=== PATIENT | male | born 1960 | race Caucasian/White ===

== ENCOUNTER 2021-07-02 22:20 | Inpatient (IN) | payer OTHER ==
[~2021-07-02] VITALS: Ht 180.3 cm; Wt 90.7 kg
--- NOTE | 2021-07-02 22:24 | NUR ---
PT SUSAN ALS. TAKEN TO BED 9
[2021-07-02 22:30] VITALS: BP 100/59
--- NOTE | 2021-07-02 22:30 | NUR ---
61 Y/O MALE BIBA, C/O FEVER AND POSS SEPSIS X2 WKS. PATIENT PRESENTS TO ED WITH PALE, COOL EXTREMETIES AND HOT CORE, DIAPHORETIC. PT STATES HE HAD RECENT LIVER SURGERY FOR REMOVAL OF CYSTS AND LIVER DRAINAGE X2 WKS AGO; PT HAS BEEN PROGRESSIVELY WEAK. DENIES N/V/D; AAOX4; PT TOO WEAK TO AMBULATE; LUNGS CLEAR BL; HR EVEN AND REGULAR; PT DENIES ANY CP, SOB, OR COUGH AT THIS TIME; PATIENT STATES PAIN OF 9/10 AT THIS TIME; VSS; PATIENT POSITIONED FOR COMFORT; HOB ELEVATED; BEDRAILS UP X2; BED DOWN. ER MD MADE AWARE OF PT STATUS. HX: HTN NKA SEE MED REC LIST
[2021-07-02] MEDS ORDERED: NACL 0.9% 1,000 ML IV SCH (22:35)
[2021-07-02] MEDS ORDERED: cefTRIAXone 1,000 MG in DEXT 5% MINI-BAG PLUS 50 ML IV ONE (22:35)
[2021-07-02 22:52] LABS: BASOPHILS # (AUTO) 0.3 K/uL (0.00-0.22); BASOPHILS % (AUTO) 1.3 % (0.0-2.0); EOSINOPHILS % (AUTO) 0.1 % (0.0-4.0); HEMATOCRIT 30.6 % (36-52); HEMOGLOBIN 9.5 g/dL (12.0-18.0); LYMPHOCYTES # (AUTO) 0.7 K/uL (2.0-11.5); LYMPHOCYTES % (AUTO) 3.2 % (20.5-51.1); MEAN CORPUSCULAR HEMOGLOBIN 25 pg (27-31); MEAN CORPUSCULAR HGB CONC 31 g/dL (33-37); MEAN CORPUSCULAR VOLUME 81.9 fL (80-94); MONOCYTES # (AUTO) 0.7 K/uL (0.8-1.0); MONOCYTES % (AUTO) 3.2 % (1.7-9.3); NEUTROPHILS # (AUTO) 19.1 K/uL (1.8-7.7); NEUTROPHILS % (AUTO) 92.2 % (42.2-75.2); PLATELET COUNT (AUTO) 550 K/uL (140-450); RED BLOOD CELL COUNT(AUTO) 3.73 MIL/uL (4.20-6.10); RED CELL DISTRIBUTION WIDTH 21.5 % (11.6-13.7); WHITE BLOOD COUNT (AUTO) 20.7 K/uL (4.8-10.8)
--- NOTE | 2021-07-02 22:57 | NUR ---
Dr. Ballard examining patient.
[2021-07-02] MEDS ORDERED: cefTRIAXone 1,000 MG VIAL ONE (23:07)
[2021-07-02 23:19] LABS: ALBUMIN 1.6 g/dL (3.4-5.0); ANION GAP 15.8 (8-16); CARBON DIOXIDE 20.8 mmol/L (21-32); CREATININE 1.9 mg/dL (0.6-1.3); POTASSIUM 5.6 mmol/L (3.5-5.1); TOTAL BILIRUBIN 1.5 mg/dL (0.0-1.0)
--- NOTE | 2021-07-03 00:08 | NUR ---
PRIMARY MONTESSORI TEACHER AT BEDSIDE
--- NOTE | 2021-07-03 00:08 | NUR ---
PT RETURN FROM CT
[2021-07-03] MEDS ORDERED: MORPHINE SULFATE 4 MG/ML SYR IVP ONE (00:25)
[2021-07-03] MEDS ORDERED: SYN.05 PO (00:47)
[2021-07-03] MEDS ORDERED: MULT-2540 PO (00:47)
[2021-07-03] MEDS ORDERED: PRED5TAB7 PO (00:47)
[2021-07-03] MEDS ORDERED: OXYC5TAB4 PO (00:47)
[2021-07-03] MEDS ORDERED: LID5T TP (00:47)
[2021-07-03] MEDS ORDERED: TRAM50TA1 PO (00:47)
[2021-07-03] MEDS ORDERED: APIX5TAB PO (00:47)
[2021-07-03] MEDS ORDERED: ESCI10TA PO (00:47)
[2021-07-03] MEDS ORDERED: DEXL60EC PO (00:47)
[2021-07-03] MEDS ORDERED: FEBU40TA PO (00:47)
[2021-07-03] MEDS ORDERED: LYR50 PO (00:47)
[2021-07-03] MEDS ORDERED: TACR1CAP17 PO (00:47)
[2021-07-03] MEDS ORDERED: SODI650T2 PO (00:47)
[2021-07-03] MEDS ORDERED: CEL250 PO (00:47)
[2021-07-03 01:21] LABS: APPEARANCE,URINE SL CLOUDY (CLEAR); BILIRUBIN,URINE 1+ (NEGATIVE); BLOOD, URINE NEGATIVE (NEGATIVE); COLOR,URINE DARK YELLOW (YELLOW); LEUKOCYTE ESTERASE ,URINE NEGATIVE (NEGATIVE); NITRITE, URINE NEGATIVE (NEGATIVE); PH,URINE 5.5 (5.0-9.0); UGLUCOSE TRACE (NEGATIVE)
--- NOTE | 2021-07-03 02:25 | NUR ---
covid/rachna swab collected and walked to lab
--- NOTE | 2021-07-03 03:00 | NUR ---
PT POC PRECIOUS MOODY () [phone]
[2021-07-03] MEDS ORDERED: DEXT 5% /NACL 0.9% 1,000 ML IV ONE (04:00)
[2021-07-03] MEDS ORDERED: MORPHINE SULFATE 4 MG/ML SYR IVP PRN (04:00)
[2021-07-03] MEDS ORDERED: ONDANSETRON 4 MG/2 ML VIAL IVP PRN (04:00)
--- NOTE | 2021-07-03 04:59 | NUR ---
Patient will be admitted to care of DR REDDING. Admited to Med/Surg. Will go to room 111B. Belongings list completed. Report to AVELINO MAHER.
[2021-07-03 05:15] VITALS: BP 100/65
--- NOTE | 2021-07-03 05:15 | NUR ---
Admitted from ER TO MED SURGICAL UNIT WITH, 61 YRS OLD, MALE, COOPERATIVE. with chief complaint of FEVER, ABDOMINAL PAIN. NO SOB NOTED BUT ON ROOM AIR, 02 SAT IS 88-89%. ON 2 LITERS VIA N/C 02 SAT 94%. AWAKE, A/OX4 WITH OCCASIONAL FORGETFULNESS. IV OF D5 0.9% NS INFUSING, RIGHT AC G20 AT 80 ML/HR. ABDOMEN LARGE, WITH SOME DISTENTION. LEFT SIDE OF ABDOMEN WITH ACCORDION DRAINAGE, BILE COLOR FLUID FROM LIVER SURGERY TWO WEEKS AGO. PATIENT HAS KIDNEY TRANSPLANT 2002. HEAD TO TOE ASSESSMENT DONE WITH CHARGE NURSE BRITTNEY, SKIN IS INTACT. NOTED 3+PITTING EDEMA ON BILATERAL FEET. ELEVATED ON PILLOWS. DENIES PAIN 0/10. WAS GIVEN MORPHINE IN ER. oriented to call light, bed,phone,television, bathroom, smoking policy,visiting hours, procedures, ID bracelet on. Belongings list checked.
--- NOTE | 2021-07-03 05:15 | NUR ---
PATIENT PLAN OF CARE DISCUSSED AND REVIEWED WITH FLO BREAUX.
--- NOTE | 2021-07-03 07:23 | NUR ---
RECEIVED REPORT FROM OIL FIELD LABORER NURSE FOR CONTINUITY OF CARE. PT IN BED SLEEPING AT THIS TIME. RESPIRATIONS ARE EVEN AND UNLABORED. PT IS ON 2L 02 VIA NC. NO SIGNS OF DISTRESS NOTED. PT IS ALERT AND ORIENTED X3. ABLE TO VERBALIZE NEEDS TO STAFF. PT IS NPO EXCEPT FOR MEDS AT THIS TIME. AWAITING GI CONSULT. PT IS INCONTINENT OF BOWEL AND BLADDER. ABD IS NONTENDER, NONDISTENDED WITH BOWEL SOUNDS PRESENT. SKIN IS WARM, DRY AND INTACT. PT DOES HOWEVER HAVE ACCORDION DRAIN TO L SIDE ABD, DRAINING. PT HAS IV TO R AC 20G. CALL LIGHT WITHIN REACH. ALL SAFETY MEASURES IN PLACE. WILL CONTINUE TO MONITOR.
[2021-07-03 08:00] VITALS: BP 121/71
--- NOTE | 2021-07-03 08:06 | NUR ---
Patient's Plan of Care was discussed and reviewed with FLO Hughes
[2021-07-03] MEDS ORDERED: traMADol 50 MG TAB PO PRN (09:30)
--- NOTE | 2021-07-03 09:31 | NUR ---
PT HAS HX OF A FIB AND TACHYCARDIA. PER DR REDDING, TRANSFER PT TO TELEMETRY. NEW ORDERS ALSO PLACED FOR PRN PAIN MEDICATION. NOTED AND CARRIED OUT. WILL CONTINUE TO MONITOR.
[2021-07-03] MEDS ORDERED: SODIUM PHOS / POTASSIUM PHOS 1 PKT PDR PO PRN (10:10)
[2021-07-03] MEDS ORDERED: ACETAMINOPHEN 325 MG TAB PO PRN (10:10)
[2021-07-03] MEDS ORDERED: DOCUSATE SODIUM 100 MG GELCAP PO PRN (10:10)
[2021-07-03] MEDS ORDERED: MAG SULF 2000 MG/WATER PREMIX 50 ML IV PRN (10:10)
[2021-07-03] MEDS ORDERED: POTASSIUM CHLORIDE 40 MEQ, LIDOCAINE MPF 1% 25 MG in NACL 0.9% 250 ML IV PRN (10:10)
[2021-07-03] MEDS: TACROLIMUS 0.5 MG CAP PO SCH ×2 (10:40→20:36)
[2021-07-03] MEDS: MYCOPHENOLATE 250 MG CAP PO SCH ×2 (10:41→20:36)
[2021-07-03] MEDS: predniSONE 5 MG TAB PO SCH (10:41)
--- NOTE | 2021-07-03 10:42 | NUR ---
ADMINISTERED SCHEDULED MEDICATIONS. EDUCATED PT ON MEDS ADMINISTERED. WILL CONTINUE TO MONITOR.
[2021-07-03 11:41] LABS: HEMATOCRIT 30.2 % (36-52); HEMOGLOBIN 9.1 g/dL (12.0-18.0); LYMPHOCYTES # (AUTO) 0.7 K/uL (2.0-11.5); MEAN CORPUSCULAR HEMOGLOBIN 25 pg (27-31); MEAN CORPUSCULAR HGB CONC 30 g/dL (33-37); MEAN CORPUSCULAR VOLUME 83.8 fL (80-94); MONOCYTES % (AUTO) 4.1 % (1.7-9.3); NEUTROPHILS # (AUTO) 22.6 K/uL (1.8-7.7); NEUTROPHILS % (AUTO) 92.9 % (42.2-75.2); PLATELET COUNT (AUTO) 509 K/uL (140-450); RED CELL DISTRIBUTION WIDTH 21.8 % (11.6-13.7); WHITE BLOOD COUNT (AUTO) 24.4 K/uL (4.8-10.8)
[2021-07-03 12:04] LABS: ALBUMIN 1.4 g/dL (3.4-5.0); CARBON DIOXIDE 20.1 mmol/L (21-32); CREATININE 2.3 mg/dL (0.6-1.3); MAGNESIUM 1.9 mg/dL (1.8-2.4); PHOSPHORUS 6.5 mg/dL (2.5-4.9); TOTAL BILIRUBIN 1.2 mg/dL (0.0-1.0)
[2021-07-03 12:09] LABS: POTASSIUM 6.1 mmol/L (3.5-5.1)
--- NOTE | 2021-07-03 12:22 | NUR ---
DC PLANNING: THE PATIENT PRESENTED WITH C/O ABDOMINAL PAIN, 11/08. H/O PERCUTANEOUS LIVER DRAIN, CHOLECYSTECTOMY AND RENAL TRANSPLANT 10 YEARS AGO. WBC'S 20.7, NA+ 127, K+ 5.6, CR 1.9. CXR SHOWS BIBASILAR ATELECTASIS, CT ABDOMEN SHOWS POLYCYSTIC KIDNEY CHANGES. GIVEN ROCEPHIN, NS BOLUS OF 1 L AND MORPHINE. CM SPOKE WITH THE PATIENT AT BEDSIDE WHO STATED THAT HE WASN'T FEELING WELL AND ASKED THAT CM SPEAK WITH HIS . CM SPOKE WITH HIS BY PHONE AND CONFIRMED HIS ADDRESS AND PHONE NUMBER. THE PATIENT LIVES IN A 4 LEVEL HOUSE WITH HIS AND HAS HIS BEDROOM ON THE FIRST FLOOR. HE HAS BEEN IN THE HOSPITAL SEVERAL TIMES THIS YEAR FOR LIVER CYSTS AND INFECTION AT [facility] IN [facility]. HE HAD A PERCUTANEOUS DRAIN PLACED 2 WEEKS AGO AND IS FOLLOWED BY DR GRUBBS FOR HIS LIVER ISSUES. HE SEES HIS PCP BRADY RICHTER MONTHLY. THE PATIENT HAS DME OF [facility] AND IS ON SERVICE WITH [facility] AND HAS BEEN FOLLOWED BY THEM FOR ABOUT 2 WEEKS. THEY ARE PROVIDING P.T., O.T. AND NURSING VISITS.HE REQUIRES A LOT OF ASSISTANCE WITH GETTING OUT OF BED AND AMBULATES TO THE LIVING ROOM WITH ASSISTANCE. 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 HE IS TOTAL CARE WITH ADL'S BUT IS ABLE TO FEED HIMSELF. HIS NOTES THAT THE PATIENT HAS NOT BEEN ABLE TO EAT FULL MEALS AND CAN TOLERATE A FEW BITES OF FOOD. HIS IS ASKING ABOUT [facility] BASED ON HIS SONS RECOMMENDATION, CM EXPLAINED THAT [facility] IS AN ACUTE REHAB AND NOT A SNF BUT THAT CM WILL REFER THE PATIENT PER HER REQUEST. THE PATIENTS SON WILL GIVE SNF OPTIONS WELL AND CM WILL SPEAK WITH THE PATIENTS INSURANCE TO VERIFY THAT THEY'RE CONTRACTED. 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 DC PLAN AT THIS TIME IS FOR PLACEMENT AT SNF OR [facility]. CM WILL FOLLOW. Addendum: 07/03/21 at 1407 by Lizy Lantigau CM DC PLANNING: THE PATIENTS CALLED CM, SNF PREFERENCES ARE [facility]. CM WILL FOLLOW. Addendum: 07/04/21 at 1058 by Lizy Lantigua CM DC PLANNING: YARELI RECEIVED AN ORDER FOR PATIENT TRANSFER TO [facility][1]. YARELI SPOKE WITH THE PATIENTS PRECIOUS TO LET HER KNOW, ALSO ASKED FOR THE PHONE NUMBER FOR DR GRUBBS, THE MD HE SEES FOR HIS LIVER ISSUES. DR SCHULTZ OFFICE NUMBER IS [phone], YARELI LEFT A MESSAGE WITH HIS ANSWERING SERVICE REQUESTING A CALL REGARDING ACCEPTING PATIENT AT [facility] IN [place] THAT IS WHERE THE PATIENT HAS HAD MOST OF HIS SURGERIES. YARELI ALSO SPOKE WITH LOCO AT [facility] ([phone] OPT 4) ASKING TO SPEAK WITH THE ASSIGNED CM. LOCO STATES THAT THE CM IS [facility], PHONE NUMBER NOT AVAILABLE. HE STATES THAT THE [facility] WILL CALL ONCE CLINICALS ARE FAXED, YARELI FAXED CLINICAL PACKET TO [facility] AT [phone], WILL WAIT FOR CALL BACK TO DISCUSS AUTH FOR TRANSFER AND TRANSPORT. YARELI WILL FOLLOW. Addendum: 07/04/21 at 1346 by Lizy Lantigua CM DC PLANNING: YARELI RECEIVED A CALL FROM YARELI HANCOCK AT [facility] ([phone]) TO DISCUSS TRANSFER TO [facility][1]. PER SANTI [facility] IS CONTRACTED BUT THEY WILL NEED TO SUBMIT AN INPATIENT REQUEST SOMETHING THEY KNOW HOW TO DO PER SANTI. YARELI THEN SPOKE WITH DR GRUBBS'S FELLOW DR MAGGY BEAN, IF PATIENT GOES TO [facility] WILL ACCEPT AND DR GRUBBS AND GENEVA WILL FOLLOW. YARELI THEN SPOKE WITH JESSICA AT [facility] ([phone]), GAVE SOME CLINICAL DETAILS AND FAXED THE CLINICAL PACKET TO THEM AT [phone]. YARELI ALSO UPDATED THE PATIENTS . YARELI WILL FOLLOW. Addendum: 07/04/21 at 1502 by Lizy Lantigua CM DC PLANNING: YARELI SPOKE WITH BOOKER AT THE [facility], STATES CASE IS STILL UNDER REVIEW AND THAT THEY ARE SPEAKING WITH DR BEAN REGARDING THE PLAN FOR THE PATIENT. YARELI WILL FOLLOW. Addendum: 07/04/21 at 1739 by Lizy Lantigua CM DC PLANNING: THE PROVIDER CUSTOMER SERVICE NUMBER FOR [facility] TO CALL FOR AUTHORIZATION 7 DAYS A WEEK PER SANTI DOWNS IS [phone]. [facility] WAS GIVEN THE NUMBER FOR THE HOSPITAL AND ACETALDEHYDE CONVERTER OPERATOR FOR FOLLOW UP. AUTHORIZATIONS GIVEN BY [facility] FOR PATIENT ADMISSION TO [facility] OF [phone]. NO AUTHORIZATION IS NEEDED FOR [facility] WHICH WAS CONFIRMED WITH THEM. YARELI GAVE THE AUTH NUMBER TO THE [facility] AND ASKED THEM TO CALL THE ACETALDEHYDE CONVERTER OPERATOR TO FINALIZE ARRANGEMENTS. YARELI ALSO SPOKE WITH THE PATIENTS PRECIOUS TO UPDATE HER ON TRANSFER ARRANGEMENTS. BEST NUMBER TO REACH HER IS [phone]. YARELI ALSO ENDORSED ABOVE TO THE ACETALDEHYDE CONVERTER OPERATOR FOR FOLLOW UP. YARELI WILL FOLLOW.
[2021-07-03] MEDS ORDERED: INSULIN REGULAR, HUMAN 100 UNIT/ML VIAL IVP SCH (12:30)
[2021-07-03] MEDS ORDERED: DEXTROSE 50% 50 ML SYR IVP SCH (12:30)
[2021-07-03] MEDS ORDERED: SODIUM POLYSTYRENE 15 GM/60 ML UDBTL PO SCH (13:00)
[2021-07-03] MEDS: metroNIDAZOLE 500 MG/NS PREMIX 100 ML IV SCH ×2 (13:05→20:35)
--- NOTE | 2021-07-03 13:10 | NUR ---
RN ADMINISTERED IV MEDICATIONS. WILL CONTINUE TO MONITOR.
--- NOTE | 2021-07-03 13:24 | NUR ---
PATIENT HAS BEEN SCREENED AND CATEGORIZED HIGH NUTRITION RISK. PATIENT WILL BE SEEN WITHIN 1-2 DAYS OF ADMISSION. REFERRAL FOR UNINTENTIONAL WEIGHT LOSS AND DECREASED APPETITE CRISTOFER [address]TERO [address]
--- NOTE | 2021-07-03 14:31 | NUR ---
DC PLANNING PATIENT IS A 61 YR OLD MALE WHO PRESENTED TO [facility]/ED ON 07/03/21 FOR ABDOMINAL PAIN. SW MET WITH PATIENT AT BEDSIDE FOR THE PURPOSE OF DISCUSSING AND GATHERING COLLATERAL INFORMATION. PATIENT STRUGGLED TO STAY AWAKE AND PROVIDED SW WITH PERMISSION TO CALL . SW OUTREACHED TO PRECIOUS MOODY (SPOUSE) [phone] WHO REPORTED SHE IS EMERGENCY CONTACT AND MEDICAL DECISION MAKER. MRS. MOODY REPORTS CURRENTLY HAVING AN A.D IN PLACE. MRS. MOODY REPORTS THAT SHE AND MR. MOODY LIVE TOGETHER IN A FOUR LEVEL HOME WITH PATIENT STAYING PRIMARILY ON THE FIRST FLOOR. PATIENT REPORTS THAT PATIENT IS AMBULATORY WITH ASSISTANCE AND UTILIZES A FWW, HAS A BUILT IN SEAT IN SHOWER AND REQUIRES ASSISTANCE WITH ADLS. MS. MOODY REPORTS THAT PATIENT MEETS CONSISTENTLY (1XMONTHLY) W/ PCP DR. BRADY GUERRERO [phone]. LAST VISIT WITH PCP 06/30/21. MRS. MOODY DENIED ANY BARRIERS IN ACQUIRING MEDICATION AND REPORTS RECEIVING MEDICATION FROM [facility] IN THE [facility]. MRS. MOODY DENIED DIALYSIS AND REPORTED THAT PATIENT RECEIVED A KIDNEY TRANSPLANT 10 YRS PRIOR ( DONOR). MRS. MOODY REPORTS PATIENT RECEIVES HOME HEALTH SERVICES FROM [facility] [phone] AND RECEIVES PT, OT, AND NURSE VISITS 2X/WEEKLY. MRS. MOODY INQUIRED ON SNF OR ACUTE CARE REHAB ([facility]). SW NOTIFIED THAT CM WOULD BE NOTIFIED OF REQUEST AND WOULD PROVIDE ADDITIONAL INFORMATION ON PLACEMENTS. REPORTS ADEQUATE FRIEND AND FAMILY SUPPORT AND REPORTS THAT SON IS ACTIVELY INVOLVED IN ASSISTING WITH CARE. SW INQUIRED ON ADDITIONAL RESOURCES NEEDED, PATIENT DECLINED AT THIS TIME.
[2021-07-03 16:00] VITALS: BP 102/59
--- NOTE | 2021-07-03 16:40 | NUR ---
DID ROUNDS ON PT. FAMILY AT BEDSIDE. GAVE FAMILY UPDATE. WILL CONTINUE TO MONITOR.
[2021-07-03] MEDS: PREGABALIN 50 MG CAP PO SCH (17:43)
[2021-07-03] MEDS ORDERED: VANCOMYCIN PER PHARMACY MC PRN (18:55)
--- NOTE | 2021-07-03 19:22 | NUR ---
ENDORSED PT TO SUPERVISOR BOTTLE MACHINES NURSE FOR CONTINUITY OF CARE. PT IS STABLE.
--- NOTE | 2021-07-03 19:23 | NUR ---
RECEIVED BEDSIDE REPORT FROM DAY RN. PT OBSERVED RESTING IN BED WITH EYES CLOSED APPEARS TO BE ASLEEP. RESPIRATIONS ARE EQUAL AND UNLABORED ON 2L NC. PT APPEARS JAUNDICE. PER REPORT PT HAS DRAIN L MID ABD WHICH IS DRAINING LIVER CYST DRAINAGE APPEARS DARK RED. DAY NURSE HAD 360CC OUT DURING SHIFT. MD AWARE. PT APPEARS JAUNDICE. PT NPO. INCONTINENT OF B/B SECOND TO LETHARGIC. IV ON RAC 20G IVF INFUSING PER ORDERS. SKIN IS INTACT. SAFETY MEASURES ARE IN PLACE. CALL LIGHT IS WITHIN REACH.
[2021-07-03] MEDS ORDERED: MEROPENEM 1,000 MG VIAL IV ONE (19:34)
[2021-07-03 20:00] VITALS: BP 92/60
[2021-07-03] MEDS ORDERED: MEROPENEM 1,000 MG in NACL 0.9% 50 ML IV ONE (20:00)
--- NOTE | 2021-07-03 20:35 | NUR ---
VSS. [place] MEDICATIONS GIVEN PER ORDERS. MED EDUCATION GIVEN. PT IS VERY LETHARGIC. SPEECH IS SOFT, SLOW. PT IS AAOX3. ABD IS LARGE, DISTENDED PER PT PASSING GAS. PERCUTANEOUS DRAIN ON L MID ABD DRESSING IS C/D/I. DRAIN IS DRAINING LIVER CYST BY GRAVITY DRAINAGE IS DARK RED/BROWN. PER PT DRAINING HAS DECREASED. POC REVIEWED WITH PT. CALL LIGHT IS WITHIN REACH. WILL CONTINUE TO MONITOR.
[2021-07-03] MEDS: SODIUM BICARBONATE 650 MG TAB PO SCH (20:36)
[2021-07-03] MEDS: APIXABAN 2.5 MG TAB PO SCH (20:45)
[2021-07-03] MEDS ORDERED: cefTRIAXone 2,000 MG in DEXTROSE 5% 100 ML IV SCH (21:00)
[2021-07-03] MEDS ORDERED: VANCOMYCIN 1GM/DEXT 5% PREMIX 200 ML IV ONE (21:00)
[2021-07-03] MEDS ORDERED: VANCOMYCIN 1,000 MG VIAL ONE (21:53)
--- NOTE | 2021-07-03 22:00 | NUR ---
PT OBSERVED LAYING IN BED RESTING QUIETLY WITH EYES CLOSED APPEARS TO BE ASLEEP. CHEST RISE AND FALL NOTED. ALL NEEDS MET. CALL LIGHT IS WITHIN REACH.
[2021-07-04] VITALS: BP 96/53
[2021-07-04 00:10] LABS: CARBON DIOXIDE 19.9 mmol/L (21-32); CREATININE 2.5 mg/dL (0.6-1.3); POTASSIUM 5.9 mmol/L (3.5-5.1)
--- NOTE | 2021-07-04 00:10 | NUR ---
VITAL SIGNS ARE WITHIN NORMAL LIMITS. PATIENT WAS CLEANED AND REPOSITION FOR COMFORT. ALL NEEDS MET. CALL LIGHT IS WITHIN REACH. WILL CONTINUE TO MONITOR.
[2021-07-04] MEDS: DEXT 5% /NACL 0.9% 1,000 ML IV SCH ×3 (00:44→19:48)
--- NOTE | 2021-07-04 02:08 | NUR ---
ROUNDS MADE. PT OBSERVED RESTING IN BED WITH EYES CLOSED. CHEST RISE AND FALL NOTED. WILL CONTINUE TO MONITOR.
[2021-07-04 04:00] VITALS: BP 98/62
[2021-07-04] MEDS ORDERED: MEROPENEM 500 MG VIAL IV ONE (04:00)
[2021-07-04] MEDS: MEROPENEM 500 MG in NACL 0.9% 50 ML IV SCH ×3 (04:02→20:46)
--- NOTE | 2021-07-04 04:10 | NUR ---
VITAL SIGNS ARE WITHIN NORMAL LIMITS. ALL SAFETY MEASURES ARE IN PLACE. WILL CONTINUE TO MONITOR .
[2021-07-04] MEDS: metroNIDAZOLE 500 MG/NS PREMIX 100 ML IV SCH ×3 (05:36→21:19)
[2021-07-04] MEDS: LEVOTHYROXINE 0.05 MG TAB PO SCH (05:36)
[2021-07-04 06:46] LABS: BASOPHILS % (AUTO) 0.1 % (0.0-2.0); HEMATOCRIT 26.7 % (36-52); HEMOGLOBIN 8.2 g/dL (12.0-18.0); LYMPHOCYTES # (AUTO) 0.9 K/uL (2.0-11.5); LYMPHOCYTES % (AUTO) 3.4 % (20.5-51.1); MEAN CORPUSCULAR HEMOGLOBIN 25 pg (27-31); MEAN CORPUSCULAR HGB CONC 31 g/dL (33-37); MEAN CORPUSCULAR VOLUME 83.3 fL (80-94); MONOCYTES # (AUTO) 1.1 K/uL (0.8-1.0); MONOCYTES % (AUTO) 4.2 % (1.7-9.3); NEUTROPHILS # (AUTO) 23.6 K/uL (1.8-7.7); NEUTROPHILS % (AUTO) 92.3 % (42.2-75.2); PLATELET COUNT (AUTO) 503 K/uL (140-450); RED CELL DISTRIBUTION WIDTH 21.3 % (11.6-13.7)
[2021-07-04 06:49] LABS: WHITE BLOOD COUNT (AUTO) 25.6 K/uL (4.8-10.8)
[2021-07-04 06:54] LABS: ANION GAP 16.2 (8-16); CARBON DIOXIDE 18.5 mmol/L (21-32); CREATININE 2.5 mg/dL (0.6-1.3); POTASSIUM 5.7 mmol/L (3.5-5.1)
--- NOTE | 2021-07-04 07:34 | NUR ---
GAVE BEDSIDE REPORT TO DAY RN. PT ENDORSED IN STABLE CONDITION.
--- NOTE | 2021-07-04 07:35 | NUR ---
RECEIVED BEDSIDE REPORT FROM [facility] SHIFT NURSE, FOR CONTINUOUS OF CARE, PT RESTING, NO DISTRESS NOTED, AWAKE ALERT ABLE TO LET NEEDS KNOWN. ON 2LPM O2 VIA NC, NO SOB NOTED. IV TO R AC 20G PATENT INTACT, INFUSING WELL. PT HAS LEFT PERCUTANEOUS DRAIN, DRAINING DARK SEROSANGUINEOUS FLUID TO GRAVITY. INITIAL ASSESSMENT DONE, ALL SAFETY PRECAUTION MET, CALL LIGHT WITHIN REACH, WILL CONTINUE TO MONITOR.
[2021-07-04 08:00] VITALS: BP 95/57
[2021-07-04 08:08] LABS: AFP (TUMOR MARKER) 1.8 ng/mL (0.0-8.4)
[2021-07-04] MEDS ORDERED: FEBUXOSTAT 40 MG PO SCH (09:00)
[2021-07-04] MEDS: PANTOPRAZOLE 40 MG INJ VIAL IVP SCH (09:10)
[2021-07-04] MEDS: APIXABAN 2.5 MG TAB PO SCH ×2 (09:11→20:52)
[2021-07-04] MEDS: MYCOPHENOLATE 250 MG CAP PO SCH (09:12)
[2021-07-04] MEDS: predniSONE 5 MG TAB PO SCH (09:12)
[2021-07-04] MEDS: TACROLIMUS 0.5 MG CAP PO SCH ×2 (09:12→20:51)
--- NOTE | 2021-07-04 09:12 | NUR ---
DUE MEDICATIONS ADMINISTERED, PT TOLERATED WELL, NO DISTRESS NOTED, WILL CONTINUE TO MONITOR.
[2021-07-04] MEDS: ESCITALOPRAM 20 MG TAB PO SCH (09:13)
[2021-07-04] MEDS: MULTIVITAMIN/MINERALS 1 TAB PO SCH (09:13)
[2021-07-04] MEDS: SODIUM BICARBONATE 650 MG TAB PO SCH ×2 (09:14→20:50)
[2021-07-04] MEDS: LIDOCAINE 5% 1 EA PATCH TP SCH (09:19)
[2021-07-04] MEDS ORDERED: SODIUM POLYSTYRENE 15 GM/60 ML UDBTL PO ONE (09:35)
[2021-07-04] MEDS ORDERED: SODIUM POLYSTYRENE 15 GM/60 ML UDBTL PO SCH (10:02)
[2021-07-04] MEDS: HYDROmorphone 1 MG/ML AMP IVP PRN ×2 (10:49→18:19)
--- NOTE | 2021-07-04 10:49 | NUR ---
PT C/O PAIN TO THE ABD 12/08, PT REFUSED TRAMADOL ORDERED PER , SPOKE TO DR REDDING, PER DR NY TO ORDER DILAUDID 1MG PRN Q6H, WILL CONTINUE WITH ORDERS. MEDICATION ADMINISTERED PT TOLERATED WELL. WILL CONTINUE TO MONITOR.
[2021-07-04 12:00] VITALS: BP 95/55
--- NOTE | 2021-07-04 13:06 | NUR ---
07/04/21 RD INITIAL ASSESSMENT COMPLETED PLEASE REFER TO NUTRITION ASSESSMENT UNDER CARE ACTIVITY FOR ESTIMATED NUTRITIONAL NEEDS. 1. CONTINUE CLEAR LIQUID DIET TOLERATED 2. RECOMMEND ENSURE CLEAR TID FOR NUTRITION SUPPORT 3. WHEN/IF MEDICALLY APPROPRIATE, RECOMMEND RENAL DIET WITH TEXTURE MODIFICATION 4. MONITOR PO INTAKE 5. RD TO FOLLOW-UP 2-3 DAYS, HIGH RISK CRISTOFER MONTERO RD
[2021-07-04] MEDS: MIDODRINE 5 MG TAB PO SCH ×2 (13:28→18:18)
[2021-07-04 13:32] LABS: CARBON DIOXIDE 19.6 mmol/L (21-32); CREATININE 2.5 mg/dL (0.6-1.3); POTASSIUM 5.6 mmol/L (3.5-5.1)
[2021-07-04 13:37] LABS: ALBUMIN 1.2 g/dL (3.4-5.0); BILIRUBIN,DIRECT 0.7 mg/dL (0.0-0.3); TOTAL BILIRUBIN 0.8 mg/dL (0.0-1.0)
[2021-07-04] MEDS ORDERED: INSULIN REGULAR, HUMAN 100 UNIT/ML VIAL IVP SCH (13:40)
[2021-07-04] MEDS ORDERED: DEXTROSE 50% 50 ML SYR IVP SCH (13:40)
--- NOTE | 2021-07-04 13:41 | NUR ---
SPOKE TO DR REDDING REGARDING POTASSIUM DID NOT GO DOWN STILL 5.6, PER DR TO ORDER INSULIN 8 UNITS REGULAR IVP WITH DEXTROSE 5O% WILL CONTINUE WITH ORDERS.
--- NOTE | 2021-07-04 15:14 | NUR ---
INFORMED FAMILY ON BEDSIDE REGARDING MEDICATION URACIL THAT WE DONT HAVE IN THE HOSPITAL, TO BRING MEDICATION, STATED UNDERSTANDING, SHE WILL GO HOME AND SEND US THE MEDICATION. Addendum: 07/04/21 at 1546 by Estela Bazan RN MEDICATION NAME SEVERINO
--- NOTE | 2021-07-04 15:15 | NUR ---
RECEIVED CALL FROM PT FAMILY PCP DR. PUCKETT REGARDING PT BILE CULTURE CAME BACK POSITIVE WITH PSEUDOMONAS THAT IS ONLY SENSITIVE TO AMAKACIN, CIPRO, TOBRAMYCIN, MEROPENEM, GENAMYCIN, IMIPENEM. WILL ENDORSE TO
--- NOTE | 2021-07-04 15:44 | NUR ---
WAS NOTIFIED BY FAMILY THAT THEY CAN NOT FIND THE MEDICATION URACIL, DR XIONG WILL CONTINUE TO MONITOR. Addendum: 07/04/21 at 1546 by Estela Bazan RN MEDICATION NAME SEVERINO
[2021-07-04 16:00] VITALS: BP 91/46
--- NOTE | 2021-07-04 16:00 | NUR ---
RECEIVED PATIENT FROM AVELINO TURNER. PATIENT LAYING IN BED AWAKE ALERT AND ORIENTED X4. PATIENT LUNGS CLEAR AND BOWEL SOUNDS ACTIVE. ABDOMEN DISTENDED AND HARD TO TOUCH, PATIENT REPORTS PAIN DURING PALPATION. PATIENT HAS GENERALIZED WEAKNESS AND IS UNABLE TO AMBULATE. PATIENT IS ON 3L O2 NC CONTINUOUS. PATIENT HAS A PERCUTANEOUS DRAIN IN ABDOMEN. DRAINAGE 325 PER LAST NURSE REPORT. PATIENT IS PALE AND WARM TO TOUCH. CALL LIGHT WITHIN REACH, BED AT LOWEST POSITION AND LOCKED, SKIN WARM DRY AND INTACT. PATIENT IS INCONTINENT BLADDER AND BOWEL.
--- NOTE | 2021-07-04 16:32 | NUR ---
ENDORSED PT TO AVELINO CORREA FOR CONTINUOUS OF CARE.
--- NOTE | 2021-07-04 17:30 | NUR ---
INSERTED GONZALES CATHETER AND COLLECTED URINE SAMPLE, SAMPLE SENT TO LAB. FOR STAT ORDER
[2021-07-04] MEDS: PREGABALIN 50 MG CAP PO SCH (18:18)
--- NOTE | 2021-07-04 19:50 | NUR ---
RECEIVEDREPORT AT BEDSIDE.PT IS STABLE.RESP UNLABORED.F/C PATENT AND DRAINING YELLOW COLOR URINE.HAD LT SIDE OF ABDOMEN DRAIN THAT IS PATENT.TELE IS ON AND SHOWING ST.IVF OF D5%,NS INFUSING WELL.CALL LIGHT IN REACH.EILL CONT.MONITORING.
[2021-07-04 20:00] VITALS: BP 108/63
[2021-07-04] MEDS: HYDROCORTISONE NA SUCC 100 MG/2 ML VIAL IV SCH (20:47)
[2021-07-04] MEDS ORDERED: SODIUM ZIRCONIUM CYCLOSILICATE 10 GM POWD.PACK PO ONE (21:00)
[2021-07-04] MEDS: HYDROcodone/APAP 5/325 MG 1 TAB TAB PO PRN (21:34)
[2021-07-05] VITALS: BP 118/63
[2021-07-05] MEDS: HYDROmorphone 1 MG/ML AMP IVP PRN ×4 (00:24→18:42)
--- NOTE | 2021-07-05 00:30 | NUR ---
HAD C/O PAIN NORCO PO GIVEN STILL HAD PAIN ULTRAM PO GIVEN .CALLED FOR DILAUDID BECAUSE HAD STILL SEVERE PAIN .MEDICATED W/ DILAUDID IVP. WILL REASSESS PAIN.HR IS ST.VS STABLE.WILL CONT. MONITORING.
--- NOTE | 2021-07-05 03:09 | NUR ---
Called [facility] Y[facility]I [facility] [phone] to follow up with the transfer; Elisabeth stated that pt needs hospitalist, told her that Dr Russell and Dr Avery will follow pt according to CM note. She stated that she will review the transfer again and will call back shortly
[2021-07-05 04:00] VITALS: BP 107/72
[2021-07-05] MEDS: HYDROCORTISONE NA SUCC 100 MG/2 ML VIAL IV SCH ×2 (04:27→12:32)
[2021-07-05] MEDS: MEROPENEM 500 MG in NACL 0.9% 50 ML IV SCH ×2 (04:27→12:31)
--- NOTE | 2021-07-05 04:30 | NUR ---
SLEPT WELL.HAD 250 ML OUT PUT FROM ABDOMINAL DRAIN.HR IS SR NOW.NO C/O PAIN NOW.
[2021-07-05] MEDS: SODIUM ZIRCONIUM CYCLOSILICATE 10 GM POWD.PACK PO SCH ×2 (04:42→12:32)
--- NOTE | 2021-07-05 04:49 | NUR ---
Called [facility] [phone] to follow up with the transfer; Elisabeth stated that still waiting for accepting provider or hospitalist. She stated that the accepting provider / hospitalist is not Dr Russell and Dr Avery. Told her, will follow up again in the morning
[2021-07-05] MEDS: metroNIDAZOLE 500 MG/NS PREMIX 100 ML IV SCH (05:02)
[2021-07-05 06:17] LABS: BASOPHILS % (AUTO) 0.1 % (0.0-2.0); HEMATOCRIT 26.2 % (36-52); LYMPHOCYTES # (AUTO) 0.8 K/uL (2.0-11.5); LYMPHOCYTES % (AUTO) 3.2 % (20.5-51.1); MEAN CORPUSCULAR HEMOGLOBIN 26 pg (27-31); MEAN CORPUSCULAR HGB CONC 31 g/dL (33-37); MEAN CORPUSCULAR VOLUME 83.6 fL (80-94); MONOCYTES # (AUTO) 0.6 K/uL (0.8-1.0); MONOCYTES % (AUTO) 2.4 % (1.7-9.3); NEUTROPHILS # (AUTO) 22.7 K/uL (1.8-7.7); PLATELET COUNT (AUTO) 480 K/uL (140-450); RED BLOOD CELL COUNT(AUTO) 3.14 MIL/uL (4.20-6.10); RED CELL DISTRIBUTION WIDTH 21.2 % (11.6-13.7)
[2021-07-05] MEDS: LEVOTHYROXINE 0.05 MG TAB PO SCH (06:25)
[2021-07-05 06:36] LABS: CARBON DIOXIDE 18.4 mmol/L (21-32); CREATININE 2.3 mg/dL (0.6-1.3); POTASSIUM 5.4 mmol/L (3.5-5.1)
[2021-07-05] MEDS: MIDODRINE 5 MG TAB PO SCH ×3 (06:45→18:09)
--- NOTE | 2021-07-05 06:47 | NUR ---
HAD C/O SEVERE PAIN.MEDICATED W/MORPHINE IVP.WILL REASSESS PER PROTOCOL.VS STABLE
[2021-07-05 06:58] LABS: NEUTROPHILS % (AUTO) 94.3 % (42.2-75.2)
--- NOTE | 2021-07-05 07:06 | NUR ---
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
--- NOTE | 2021-07-05 07:20 | NUR ---
PT SLEEPING. EQUAL CHEST RISE AND IN NO DISTRESS. RESTING COMFORTABLY. PT ON 3L NASAL CANNULA.
--- NOTE | 2021-07-05 07:34 | NUR ---
ENDORSED TO AM RN IN STABLE CONDITION.
--- NOTE | 2021-07-05 07:36 | NUR ---
RECEIVED BEDSIDE REPORT FROM QUILL STRIPPER NURSE, FOR CONTINUOUS OF CARE, PT RESTING, NO DISTRESS NOTED, AWAKE ALERT ABLE TO LET NEEDS KNOWN. ON 2LPM O2 VIA NC, NO SOB NOTED. SKIN IS WARM, DRY, AND NON-INTACT. PT HAS LEFT PERCUTANEOUS DRAIN, DRAINING DARK SEROSANGUINEOUS FLUID TO GRAVITY. IV TO R AC 20G PATENT INTACT, INFUSING WELL. DENIES PAIN AT THE MOMENT. PLAN OF CARE DISCUSSED. INITIAL ASSESSMENT DONE, ALL SAFETY PRECAUTION MET, CALL LIGHT WITHIN REACH, WILL CONTINUE TO MONITOR.
[2021-07-05 08:00] VITALS: BP 113/71
[2021-07-05] MEDS: SODIUM BICARBONATE 650 MG TAB PO SCH (08:57)
[2021-07-05] MEDS: ESCITALOPRAM 20 MG TAB PO SCH (08:58)
[2021-07-05] MEDS: MULTIVITAMIN/MINERALS 1 TAB PO SCH (08:58)
[2021-07-05] MEDS: PANTOPRAZOLE 40 MG INJ VIAL IVP SCH (08:59)
[2021-07-05] MEDS: predniSONE 5 MG TAB PO SCH (08:59)
[2021-07-05] MEDS: LIDOCAINE 5% 1 EA PATCH TP SCH (09:02)
[2021-07-05] MEDS ORDERED: MYCOPHENOLATE 250 MG CAP PO SCH (09:15)
[2021-07-05] MEDS: TACROLIMUS 0.5 MG CAP PO SCH (09:23)
[2021-07-05] MEDS: APIXABAN 2.5 MG TAB PO SCH (09:23)
--- NOTE | 2021-07-05 09:50 | NUR ---
ALL SCHEDULED MEDS GIVEN. PT IS STABLE. NO DISTRESS NOTED. WILL CONTINUE TO MONITOR.
[2021-07-05] MEDS ORDERED: VANCOMYCIN 1,000 MG in DEXTROSE 5% 250 ML IV SCH (10:00)
[2021-07-05] MEDS: HYDROcodone/APAP 5/325 MG 1 TAB TAB PO PRN (10:48)
[2021-07-05 12:00] VITALS: BP 111/78
[2021-07-05] MEDS: DEXT 5% /NACL 0.9% 1,000 ML IV SCH (12:32)
--- NOTE | 2021-07-05 12:35 | NUR ---
ALL SCHEDULED MEDS GIVEN. PT IS STABLE. NO DISTRESS NOTED. WILL CONTINUE TO MONITOR.
[2021-07-05] MEDS ORDERED: SODIUM POLYSTYRENE 15 GM/60 ML UDBTL PO ONE (12:40)
[2021-07-05] MEDS ORDERED: FUROSEMIDE 40 MG/4 ML VIAL IVP SCH (12:45)
[2021-07-05] MEDS ORDERED: SODIUM BICARBONATE IV SCH ×3 (13:40→23:55)
[2021-07-05] MEDS ORDERED: NACL 0.9% IV SCH ×3 (13:40→23:55)
[2021-07-05] MEDS ORDERED: DEXT 5% IV SCH ×3 (13:40→23:55)
--- NOTE | 2021-07-05 14:36 | NUR ---
CHECKED ON PATIENT. PT IS STABLE. NO DISTRESS NOTED. WILL CONTINUE TO MONITOR
[2021-07-05 16:00] VITALS: BP 100/69
[2021-07-05] MEDS: PREGABALIN 50 MG CAP PO SCH (18:09)
--- NOTE | 2021-07-05 18:10 | NUR ---
ALL SCHEDULED MEDS GIVEN. PT IS STABLE. NO DISTRESS NOTED. WILL CONTINUE TO MONITOR.
--- NOTE | 2021-07-05 18:25 | NUR ---
CONTACTED [facility] TO SETUP TRANSPORTATION FOR PATIENT. ETA WILL BE AT 2100. PATIENT WILL BE GOING TO [facility] IN ROOM [address] MAGGY BEAN. WILL ENDORSED PATIENT REPORT TO [facility] AT 1900
--- NOTE | 2021-07-05 19:45 | NUR ---
RECIEVED PT AAOX 4 , NID , 02 SAT 98 5 , ON O2 AT 2LPM / NC , IV SITE INTACT AND PATENT , W/ URINE GONZALES CATH DRAINING CLEAR URINE OUTPUT ON URINE BAG , W/ LIVER DRAIN DRAINING BY GRAVITY TO COLLECTING BAG DRAIN IN SMALL AMOUNT BROWNISH DRAINAGE , BP 110/ 72 , ON TELE MONITOR - NO C/O PAIN AT THIS TIME , BLOATED ABDOMEN , PLAN OF CARE DISCUSSED AND VERBALIZES UNDERSTANDING , WILL ATTEND ALL NEEDS , FOR TRANSFER TO [facility] PER 'S ORDER , TRANSFER PACKET ALREADY PRINTED . WILL CONT. TO MONITOR .
--- NOTE | 2021-07-05 19:45 | NUR ---
ENDORSED TO REVIEW SPECIALIST NURSE FOR CONTINUITY OF CARE. PT IS STABLE.
--- NOTE | 2021-07-05 20:53 | NUR ---
REPORT GIVEN TO LIDIA YOU AND HE KNOWS PT IS TO BE [facility] HERE BY 2100 BY TRANSPORT .
[2021-07-05] MEDS ORDERED: SODIUM CHLORIDE 1 GM TAB PO SCH (21:00)
--- NOTE | 2021-07-05 21:04 | NUR ---
CALL [facility] - PER [facility] THEY WILL HERE AT ABOUT 45 MINS.
--- NOTE | 2021-07-05 21:59 | NUR ---
DISCHARGE / OTOLARYNGOLOGY SURGEON BY [facility] , DISCONNECTED IVF , DRAIN URINE BAG W ITH 300CC U.O , DRAIN LIVER DRAIN W/ 100CC DRAINAGE , BP 112/ 74 , O2 SAT 98 % , SC 98 , T 98.8 F , NO C/O PAIN . PER COMMAND TO NIKA BREAUX LVN - ALL BELONGINGS GIVEN BY NIKA BREAUX LVN TO [facility] STAFF . SKIN INTACT . REMOVE ON TELE MONITOR .
[2021-07-06 02:20] LABS: BARBITURATE, URINE NEGATIVE ng/ml (NEG <=200); BENZODIAZEPINE, URINE NEGATIVE ng/mL (NEG <=200); CANNABINOID, URINE NEGATIVE ng/mL (NEG <=50); COCAINE, URINE NEGATIVE ng/mL (NEG <=300); OPIATE, URINE POSITIVE ng/mL (NEG <=2000); PHENCYCLIDINE SCREEN,URINE NEGATIVE ng/mL (NEG <=25)
== END 2021-07-05 22:10 | disposition short-term general hospital (02) | DRG 919 ==
LOC: MED 22:20 → MMU 07-03 04:04 → MTU 07-03 04:34
PROVIDERS: ADMIT Hospitalist; ATTEND Hospitalist
DX: T85.79XA Infection and inflammatory reaction due to other internal prosthetic devices, implants and grafts, initial encounter (principal); K65.1 Peritoneal abscess; A41.9 Sepsis, unspecified organism; E43 Unspecified severe protein-calorie malnutrition; N17.0 Acute kidney failure with tubular necrosis; J96.01 Acute respiratory failure with hypoxia; R65.20 Severe sepsis without septic shock; K65.2 Spontaneous bacterial peritonitis; L02.91 Cutaneous abscess, unspecified; J98.11 Atelectasis; D84.81 Immunodeficiency due to conditions classified elsewhere; Z94.0 Kidney transplant status; E87.1 Hypo-osmolality and hyponatremia; Q44.6 Cystic disease of liver; E87.2 Acidosis; R18.8 Other ascites; E03.9 Hypothyroidism, unspecified; K21.9 Gastro-esophageal reflux disease without esophagitis; I12.9 Hypertensive chronic kidney disease with stage 1 through stage 4 chronic kidney disease, or unspecified chronic kidney disease; E83.39 Other disorders of phosphorus metabolism; D63.8 Anemia in other chronic diseases classified elsewhere; E80.6 Other disorders of bilirubin metabolism; E87.5 Hyperkalemia; E11.65 Type 2 diabetes mellitus with hyperglycemia; N18.30 Chronic kidney disease, stage 3 unspecified; E11.22 Type 2 diabetes mellitus with diabetic chronic kidney disease; Y83.8 Other surgical procedures as the cause of abnormal reaction of the patient, or of later complication, without mention of misadventure at the time of the procedure; R15.9 Full incontinence of feces; N28.1 Cyst of kidney, acquired; Z20.822 Contact with and (suspected) exposure to COVID-19; Z90.49 Acquired absence of other specified parts of digestive tract; Z79.899 Other long term (current) drug therapy; Z79.52 Long term (current) use of systemic steroids; Z88.7 Allergy status to serum and vaccine; Z68.27 Body mass index [BMI] 27.0-27.9, adult; Y92.89 Other specified places as the place of occurrence of the external cause
CPT/HCPCS: 36415; 71045; 76705; 80048; 80053; 80076; 80202; 80305; 81003; 82105; 82140; 82378; 82948; 83036; 83605; 83690; 83735; 83880; 84100; 84300; 84484; 85025; 86301; 87040; 87070; 87075; 87081; 87086; 87102; 87205; 96361; 96365; 96375; 99285; C9113; J0696; J1170; J1720; J1815; J2185; J2270; J2405; J3370; J3490; J7030; J7042; J7060; J7507; J7512; J7517; Q0092